=== PATIENT | female | born 1960 | race American Indian/Alaskan Native ===

== ENCOUNTER 2017-10-20 08:00 | Emergency (ER) | payer OTHER ==
[2017-10-20 08:09] VITALS: BP 143/81; PULSE 88; RESP 16; TEMP 97.7; O2SAT 95
--- NOTE | 2017-10-20 08:18 | EDPHY ---
H & P Time Seen by Provider: 10/20/17 08:16 HPI/ROS: CHIEF COMPLAINT: Insomnia, stress HISTORY OF PRESENT ILLNESS: This patient is a 56 y/o female complaining of fatigue and stress related to her job. She states "I can't handle my job" and feels that she is doing worse every day. This morning, she felt too stressed and upset to go to work. She is currently looking for a new position. She feels she does not have support at home to discuss her situation either. She has had insomnia and is hoping to find a way to sleep better. She is usually happy and enjoys work, and has never felt this way before. No history of depression, anxiety, or other mental health diagnoses. She denies recent illness or trauma. REVIEW OF SYSTEMS: A 10 point review of systems was performed and is negative with the exception of the elements mentioned in the history of present illness. Past Medical/Surgical History: Asthma. Social History: Employed. . Lives in [place]. Nonsmoker. Smoking Status: Never smoked Physical Exam: General Appearance: Alert, pleasant Eyes: Pupils equal and round, no conjunctival injection ENT, Mouth: Mucous membranes moist Neck: Normal inspection Respiratory: normal resp rate Cardiovascular: Regular rate Neurological: A&O, nonfocal exam Skin: Warm and dry Extremities: normal inspection Psychiatric: Mood and affect normal Constitutional: Initial Vital Signs Temperature (C) 36.5 C 10/20/17 08:06 Heart Rate 88 10/20/17 08:06 Respiratory Rate 16 10/20/17 08:06 Blood Pressure 143/81 H 10/20/17 08:06 O2 Sat (%) 95 10/20/17 08:06 O2 Delivery Mode Room Air Allergies/Adverse Reactions: No Known Allergies Allergy (Unverified 10/20/17 08:05) Home Medications: Medication Instructions Recorded Advil 2 tab PO PRN 03/01/16 Vitamin E 1 cap PO DAILY 03/01/16 Benadryl 10/20/17 Zolpidem Tartrate [Ambien 5MG (*)] 5 mg PO HS #10 tab 10/20/17 Medical Decision Making ED Course/Re-evaluation: 56 y/o female presents with work-related stress. She is otherwise healthy. Physical exam unremarkable. The patient appears stressed and tearful throughout my interview. 08:[address] Denton. Patient likely experiencing situational depression related to her job. Plan to d /c home in good condition with prescription for Ambien for sleep. She will receive a work note for two days so she can work on establishing a support network and finding a new position. Departure - Departure Disposition: Home, Routine, Self-Care Clinical Impression: Situational depression Condition: Good Instructions: Stress (ED) Additional Instructions: 1. Take Ambien as prescribed as needed for sleep. 2. Follow up with [facility] to find more resources for support and stress management. 3. Return to the Emergency Department with any further concerns. Referrals: [facility],. [Clinic] - As per Instructions Stand Alone Forms: Work Excuse Prescriptions: Zolpidem Tartrate [Ambien 5MG (*)] 5 mg PO HS #10 tab Report Scribed for: Stephany Desai Report Scribed by: Karma Lara Date of Report: 10/20/17 Time of Report: 08:17 Physician Review and Approval Statement: 10/20/17 08:17 Portions of this note were transcribed by a electromedical service engineer. I personally performed a history, physical exam, medical decision making, and confirmed accuracy of information the transcribed note.
== END 2017-10-20 08:45 | disposition home or self-care (01) ==
DX: F43.21 Adjustment disorder with depressed mood (principal); J45.909 Unspecified asthma, uncomplicated